=== PATIENT | female | born 1935 | race Caucasian/White ===

== ENCOUNTER 2017-01-24 10:15 | Inpatient (IN) ==
[2017-01-24] MEDS ORDERED: LACTATED RINGERS 1,000 ML IV ONE (10:28)
[2017-01-24] MEDS ORDERED: DIPH/TET/ACEL PERT BOOSTER VACCINE 0.5 ML VIAL IM ONE ×2 (10:29→10:46)
[2017-01-24] MEDS ORDERED: ONDANSETRON 4 MG/2 ML VIAL IV STA (10:29)
[2017-01-24] MEDS ORDERED: HYDROmorphone 2 MG/1 ML VIAL IV STA (10:29)
--- NOTE | 2017-01-24 10:38 | Emergency Department Note ---
Rylee Pro Kasabria, am scribing for, and in the presence of, Efrain Saleh MD 10 :33. Therese Pro James D, MD, personally performed the services described in this documentation, ascribed by Lily Mckee in my presence, and it is both accurate and complete . Arrival - Arrival Chief Complaint: Fall Stated Complaint: fall; ankle fracture ED Nursing Triage Note: tripped and fell last night around 1am, pt has no complaints, obvious deformity r ankle, morphine 5mg iv per ems Mode of Arrival: Stretcher Limitations: No Limitations Source: Patient, Family (daughter), RN Notes Reviewed Time Seen by Provider: 01/24/17 10:27 - History of Present Illness HPI Narrative: This is a 81 y/o white female presenting to the ED with c/o falling this morning at approximately 0100. She states she tripped and fell and laid on the floor until her daughter came to check on her. EMS was called and pt was given 5mg of morphine IV. Pt has an obvious deformity to her right medial ankle with a dorsalis pedis pulse detected with ultrasound. Her PMHx is consistent with diabetes, HTN, high cholesterol, and dementia. Onset (ago): hour(s) (10) Consistency: constant Severity: moderate Allergies/Adverse Reactions: Allergies Allergy/AdvReac Type Severity Reaction Status Date / Time Sulfa (Sulfonamide AdvReac RASH Unverified 01/24/17 10:17 Antibiotics) Home Medications: Home Medications Medication Instructions Recorded Confirmed Type Amitriptyline [Elavil] 50 mg PO BEDTIME 01/24/17 01/24/17 History Atenolol [Atenolol] 25 mg PO BID 01/24/17 01/24/17 History Cilostazol [Cilostazol] 50 mg PO BID 01/24/17 01/24/17 History Gabapentin [Gabapentin] 100 mg PO BID 01/24/17 01/24/17 History Insulin NPH Hum/Reg Insulin Hm units SUBCUT 01/24/17 History [NovoLIN 70/30] Losartan Potassium 100 mg PO DAILY 01/24/17 01/24/17 History Memantine [Namenda] 5 mg PO BID 01/24/17 01/24/17 History Pantoprazole Tab [Protonix Tab] 40 mg PO DAILY 01/24/17 01/24/17 History Triamterene/Hydrochlorothiazid 1 each PO DAILY 01/24/17 01/24/17 History [Triamterene-Hctz 37.5-25 mg Cp] metFORMIN [Glucophage] 500 mg PO DAILY W/BREAKFAST 01/24/17 01/24/17 History Review of System - Review of System 12 point system: reviewed and no additional remarkable complaints except as stated - Review of System Constitutional: Absent: chills, fever, weakness Eyes: Absent: vision change Head/Ears/Nose/Throat: Absent: nasal drainage Respiratory: Absent: wheezing Cardiovascular: Absent: chest pain, dyspnea on exertion Gastrointestinal: Absent: abdominal pain, nausea, vomiting, diarrhea Genitourinary female: Absent: dysuria Musculoskeletal: Present: leg pain (right ankle deformity and pain ). Absent: arm pain, back pain, neck pain Skin: Absent: rash Neurological: Absent: headache, weakness, confusion, vertigo Psychiatric: Absent: anxiety Endocrine: Absent: fatigue Hematological/Lymphatic: Absent: easy bleeding Allergic/Immunologic: Absent: facial swelling Medical,Surgical,& Family Hx - Medical History Cardio: History of: Hypertension Endocrine: History of: Diabetes Mellitus (NIDDM) - Social History Smoking Status: Unknown if ever smoked Exam Vital Signs: Vital Signs Temperature 94.3 F L 01/24/17 11:23 Pulse Rate 78 01/24/17 11:23 Respiratory Rate 16 01/24/17 11:23 Blood Pressure 183/84 01/24/17 11:23 O2 Sat by Pulse Oximetry 93 L 01/24/17 10:17 - General General appearance: alert, in no apparent distress - Head Head exam: Present: atraumatic, normocephalic, normal inspection - Eye Eye exam: Present: normal appearance, PERRL, EOMI - ENT ENT exam: Present: normal exam, normal oropharynx, mucous membranes moist, TM's normal bilaterally, normal external ear exam - Neck Neck exam: Present: normal inspection, full ROM, trachea midline. Absent: tenderness - Chest Chest inspection: Present: normal inspection, symmetric chest wall rise. Absent : tenderness - Respiratory Respiratory exam: Present: normal lung sounds bilaterally - Cardiovascular Cardiovascular exam: Present: regular rate, normal rhythm, normal heart sounds - Abdominal Exam Abdominal exam: Present: soft, normal bowel sounds. Absent: distention, tenderness - Expanded Lower Right Lower Ankle exam: Present: tenderness, swelling, abrasion, ecchymosis (Skin breakdown overlying the medial malleolus), deformity (pulses detected at the dorsalis pedis on R). Absent: normal inspection, full ROM Neurovascular/Tendon exam: Present: normal capillary refill, pulse deficit (At posterior tibial), extremity cold to touch, normal fine/light touch. Absent: sensory deficit Gait: not tested/not observed, unable to bear weight - Back Exam Back exam: Present: normal inspection, full ROM. Absent: tenderness - Neurological Exam Neurological exam: Present: alert, oriented X3, CN II-XII intact, normal gait, reflexes normal - Psychiatric Psychiatric exam: Present: normal affect, normal mood - Skin Skin exam: Present: warm, dry, intact, normal color. Absent: rash, diaphoresis Course Course Narrative: Patient was given warmed IV fluids while in the emergency department. She was given Dilaudid IV and Zofran and had her right ankle reduced. Postreduction views reveal anatomic reduction. - Consultations Consultation #1: Discussed with hospitalist. Patient will be admitted to their service. Time: 11:06 Consultation #2: Discussed with orthopedics. Dr. Prieto patient for ORIF. Time: 11:06 Procedures - Orthopedic Fracture Reduction Fracture #1 Consent Obtained: verbal consent Time Out Performed: Yes Side: right Fracture Reduction Location: tibia, fibula Analgesia: other (analgesia, dilaudid) Technique: direct manipulation Post Reduction X-rays Demonstrate: anatomical reduction Post-reduction neuro exam: intact Post-reduction vascular exam: intact Splint Applied: Yes Patient Tolerated Procedure: well, no complications Results - Labs Lab Results: I have reviewed the patients labs - EKG EKG results: interpreted by ERMD - Impressions EKG: Normal sinus rhythm with a rate of 77, nonspecific ST-T wave changes, left axis deviation. - Diagnostic Findings Procedure: Chest x-ray: image reviewed by me (No infiltrates, no pleural effusions.), X-ray: image reviewed by me (Right ankle: Bimalleolar fracture dislocation) Disposition Clinical Impression: Dementia, Essential hypertension, Diabetes mellitus, Bimalleolar fracture of right ankle, Hypothermia Case discussed with: patient, patient's family Disposition: Still a Patient Condition: Stable
[2017-01-24] MEDS ORDERED: ONDANSETRON 4 MG/2 ML VIAL ONE (10:46)
[2017-01-24] MEDS ORDERED: HYDROmorphone 2 MG/1 ML VIAL ONE (10:46)
--- NOTE | 2017-01-24 11:13 | XRay Report ---
XR chest 1V portable Indication: Respiratory preoperative evaluation Comparison: 14 August 2014 Findings: The heart and mediastinum are normal in size and configuration. The pulmonary vascularity is normal in caliber. No lung infiltrates, effusions, pneumothorax or other abnormality is demonstrated. Impression: No acute cardiopulmonary disease. PROCEDURE INTERPRETED AT [facility] DEPARTMENT OF RADIOLOGY Final Report Signed by: Dr. Jules Salazar
--- NOTE | 2017-01-24 11:13 | XRay Report ---
XR ankle 2V RT Clinical Information: POST REDUCTION, cast placement Comparison: 01/24/2017 at 10:24 AM Findings: Since the prior study, there has been external cast placement about the comminuted fracture dislocation at the distal tibia/fibula and tibiotalar joint. Overlying soft tissue swelling is noted. Bones aren't significantly improved anatomic position/alignment. Impression: As above PROCEDURE INTERPRETED AT [facility] DEPARTMENT OF RADIOLOGY Final Report Signed by: Mason Villanueva
[2017-01-24] MEDS ORDERED: ONDANSETRON 4 MG/2 ML VIAL IV PRN (11:14)
--- NOTE | 2017-01-24 11:14 | XRay Report ---
XR ankle 3V RT Clinical Information: deformity, Fracture, pain Comparison: None available Findings: Acute mildly comminuted fractures of the distal tibia/fibular are noted. There is also complete dislocation at the tibiotalar joint. Overlying soft tissue swelling is noted. Impression: As above. PROCEDURE INTERPRETED AT [facility] DEPARTMENT OF RADIOLOGY Final Report Signed by: Mason Villanueva
[2017-01-24 11:36] LABS: Basophils % 0.2 % (0.0-0.8); Eosinophils % 0.2 % (0.00-10.9); Hematocrit 37.6 VOL% (35.7-47.0); Hemoglobin 12.8 GM/DL (12.0-16.0); Immature Granulocytes % 0.7 %; Immature Granulocytes Absolute 0.06 #; Lymphocytes # 0.7 10*3/uL (1.4-4.0); Lymphocytes % 7.5 % (21.3-54.2); Mean Corpuscular Hemoglobin 32 PG (27-34); Mean Corpuscular Volume 92.6 FL (87-102); Mean Platelet Volume 10.5 FL (9.6-12.0); Monocytes # 0.6 10*3/uL (0.11-0.8); Monocytes % 6.7 % (1.7-12.7); Neutrophils # 7.7 10*3/uL (1.4-7.4); Neutrophils % 84.7 % (38.7-73.9); Platelet Count 142 T/CUMM (130-400); Red Blood Count 4.06 MC/CUMM (3.8-5.5); White Blood Count 9.1 T/CUMM (4-12)
[2017-01-24 11:47] LABS: PT Patient Result 10.9 SECS; Partial Thromboplastin Time 28.4 SECS (0-40)
[2017-01-24 12:08] LABS: Albumin 3.6 G/DL (3.4-5.0); Bilirubin,Total 1.2 MG/DL (0.2-1.0); Calcium 8.5 MG/DL (8.5-10.1); Potassium 5.4 MMOL/L (3.5-5.1); Total Protein 6.3 G/DL (6.4-8.3)
--- NOTE | 2017-01-24 12:17 | Hospitalist History & Physical ---
Assessment and Plan (1) Bimalleolar fracture of right ankle Status: Acute Assessment and plan: We will admit for medical management. We will start VTE prophylaxis, manage pain , and consult ortho for possible surgical intervention. Current Visit: Yes (2) Diabetes mellitus Status: Acute Assessment and plan: We will obtain HGA1C and start accuchecks with ss coverage. Current Visit: Yes (3) Essential hypertension Status: Acute Assessment and plan: We will medically manage during the clinical encounter. Current Visit: Yes History of Present Illness Chief complaint: fall and R ankle pain and injury History of present illness: This is a very pleasant 81 year old female that presented to the ED at [facility] with a chief compliant of right ankle pain. She has a medical history of hypertension, dementia, hyperlipidemia, and diabetes mellitus. The patient reports that she got up around 0100 this morning to use the restroom when she tripped and fell on the floor. The patient was not able to get up. She remained there on the floor until her daughter, who lives next door came over about 9AM this morning and found her. Her daughter called EMS and she was transferred to the ED for further evaluation. The patient has a noted deformity to the right ankle which was reduced by Dr. Saleh. Her pulses were strong upon palpation. The right lower leg was immobilized. Home Medications Medication Instructions Recorded Confirmed Type Amitriptyline [Elavil] 50 mg PO BEDTIME 01/24/17 01/24/17 History Atenolol [Atenolol] 25 mg PO BID 01/24/17 01/24/17 History Cilostazol [Cilostazol] 50 mg PO BID 01/24/17 01/24/17 History Gabapentin [Gabapentin] 100 mg PO BID 01/24/17 01/24/17 History Insulin NPH Hum/Reg Insulin Hm 40 units SUBCUT QPM 01/24/17 01/24/17 History [NovoLIN 70/30] Insulin NPH Hum/Reg Insulin Hm 64 units SUBCUT QAM 01/24/17 01/24/17 History [NovoLIN 70/30] Losartan Potassium 100 mg PO QAM 01/24/17 01/24/17 History Lovastatin [Lovastatin] 40 mg PO DAILY W/SUPPER 01/24/17 01/24/17 History Memantine [Namenda] 5 mg PO BID 01/24/17 01/24/17 History Pantoprazole Tab [Protonix Tab] 40 mg PO QAM 01/24/17 01/24/17 History Triamterene/Hydrochlorothiazid 1 each PO QAM 01/24/17 01/24/17 History [Triamterene-Hctz 37.5-25 mg Cp] metFORMIN [Glucophage] 500 mg PO DAILY W/BREAKFAST 01/24/17 01/24/17 History Allergies Allergy/AdvReac Type Severity Reaction Status Date / Time Sulfa (Sulfonamide AdvReac RASH Unverified 01/24/17 10:17 Antibiotics) Medical,Surgical,& Family Hx - Medical History Cardio: History of: Hypertension Endocrine: History of: Diabetes Mellitus (NIDDM) - Social History Smoking Status: Unknown if ever smoked Exam - Constitutional Vitals: Period Temp Pulse Resp BP Sys/Brooke Pulse Ox Last 24 Hr 94.3 F 78 16 183/84 General appearance: normal weight, no acute distress - Head Head exam: Present: normal inspection, normocephalic, atraumatic - Eye Eye exam: Present: EOMI. Absent: conjunctival injection Pupils: Present: SANJUANA. Absent: normal accommodation - ENT ENT exam: Present: normal exam, normal external ear exam, normal oropharynx - Neck Neck exam: Present: normal inspection. Absent: lymphadenopathy, meningismus, tenderness, thyromegaly - Respiratory Respiratory exam: Present: clear to auscultation bilaterally. Absent: rales, rhonchi, stridor, wheezes - Cardiovascular Cardiovascular exam: Present: regular rate and rhythm. Absent: carotid bruit, diastolic murmur, gallop, JVD, rubs, systolic murmur, tachycardia - GI/Abdominal GI/Abdominal exam: Present: normal bowel sounds, soft - Extremities Exam Extremities exam: Present: edema (right foot), other (immobilizer to right lower leg; pulses palpable) - Back Exam Back exam: Present: normal inspection - Neurological Exam Neurological exam: Present: alert, oriented X3 - Psychiatric Psychiatric exam: Present: normal affect, normal mood - Skin Skin exam: Present: normal color, warm, dry Results - Labs CBC & BMP: 01/24/17 11:29 Lab Results: I have reviewed the past 24 hour labs
[2017-01-24 12:43] LABS: Apearance,Urine CLOUDY (Clear); Bacteria,Urine Many /HPF (Few); Bilirubin,Urine Negative (Negative); Blood, Urine Small mg/dL (Negative); Glucose,Urine (UA) Negative (Negative); Ketones,Urine Negative (Negative); Nitrite,Urine Negative (Negative); Protein,Urine Negative; Urine Color Yellow (Yellow); Urine Urobilinogen < 2.0 EU/DL (0.2-1.0); WBC,Urine 20 /HPF (0-6)
[2017-01-24] MEDS ORDERED: ROPIVACAINE 0.5% 30 ML VIAL ONE (13:06)
[2017-01-24] MEDS ORDERED: ceFAZolin 2,000 MG in PREMIX 1 EACH IV ONE (14:27)
--- NOTE | 2017-01-24 14:33 | Orthopedic Consult Note ---
History of Present Illness Chief complaint: Right trimalleolar ankle fracture History of present illness: Ms. Parker is a 81 year old female who fell this morning approximately 1 AM. She was going to the bathroom. She sustained a right closed trimalleolar ankle fracture. She was found this morning by her daughter. Patient has underlying peripheral neuropathy and did not wish to bother anybody. She denies any other injury. She has not had any prior problems to her right ankle. Patient underwent a closed reduction by Dr. Saleh in the emergency room and was splinted. Right lower extremity was examined. Splint was taken down. There is no gross deformity. She does have a superficial abrasive changes to the medial aspect of her ankle. She also has a 3 x 3 cm area of contused skin. Pulses are only faintly positive. Foot is warm and pink. Sensation is decreased in a stocking distribution to roughly her mid leg. X-rays ankle pre-and post reduction were reviewed. They demonstrate a trimalleolar fracture dislocation which is been reduced and splinted. Impression: Right trimalleolar ankle fracture. Diabetic peripheral neuropathy and vasculopathy. Plan: I have advised open reduction fixation. Risks and benefits were discussed. I discussed that given her significant neuropathy and continues skin that she is at risk for wound healing problems and possibly amputation. Other risks were discussed and all questions were answered. Home Medications Medication Instructions Recorded Confirmed Type Amitriptyline [Elavil] 50 mg PO BEDTIME 01/24/17 01/24/17 History Atenolol [Atenolol] 25 mg PO BID 01/24/17 01/24/17 History Cilostazol [Cilostazol] 50 mg PO BID 01/24/17 01/24/17 History Gabapentin [Gabapentin] 100 mg PO BID 01/24/17 01/24/17 History Insulin NPH Hum/Reg Insulin Hm 40 units SUBCUT QPM 01/24/17 01/24/17 History [NovoLIN 70/30] Insulin NPH Hum/Reg Insulin Hm 64 units SUBCUT QAM 01/24/17 01/24/17 History [NovoLIN 70/30] Losartan Potassium 100 mg PO QAM 01/24/17 01/24/17 History Lovastatin [Lovastatin] 40 mg PO DAILY W/SUPPER 01/24/17 01/24/17 History Memantine [Namenda] 5 mg PO BID 01/24/17 01/24/17 History Pantoprazole Tab [Protonix Tab] 40 mg PO QAM 01/24/17 01/24/17 History Triamterene/Hydrochlorothiazid 1 each PO QAM 01/24/17 01/24/17 History [Triamterene-Hctz 37.5-25 mg Cp] metFORMIN [Glucophage] 500 mg PO DAILY W/BREAKFAST 01/24/17 01/24/17 History Allergies Allergy/AdvReac Type Severity Reaction Status Date / Time Sulfa (Sulfonamide AdvReac RASH Unverified 01/24/17 10:17 Antibiotics) 12 point system: reviewed and no additional remarkable complaints except as stated Medical,Surgical,& Family Hx - Medical History Cardio: History of: Hypertension Neurology: History of: Dementia HEENT: History of: Eye Problem (Glasses. Diabetic retinopathy), Dental Problems (Full dentures), HEENT Problems ([place]) Endocrine: History of: Diabetes Mellitus (NIDDM), Dyslipidemia Genitourinary: History of: Recurring Urinary Tract Infections - Surgical History HEENT Surgeries: Surgical HX of: Eye Surgery (Cataracts) Abdominal Surgeries: Surgical HX of: Cholecystectomy Reproductive Surgeries: Surgical HX of;: Hysterectomy (Partial) - Social History Smoking Status: Never smoker Frequency of Alcohol Use: None Type of Drug Use: None Exam - Constitutional Vitals: Period Temp Pulse Resp BP Sys/Brooke Pulse Ox Last 24 Hr 94.3 F-97.0 F 78-82 16-20 113-183/78-84 91 Results - Labs CBC & BMP: 01/24/17 11:29 01/24/17 11:29 Assessment and Plan (1) Trimalleolar fracture of right ankle Status: Acute Current Visit: Yes Qualifiers: Encounter type: initial encounter Fracture type: closed Qualified Code(s) : S82.851A - Displaced trimalleolar fracture of right lower leg, initial encounter for closed fracture
[2017-01-24] MEDS ORDERED: PROPOFOL 200 MG/20 ML VIAL IV ONE (15:00)
[2017-01-24] MEDS ORDERED: ceFAZolin 1,000 MG VIAL ONE (15:21)
[2017-01-24] MEDS ORDERED: BACITRACIN OINT 0.9 GM PACK TOP ONE ×2 (15:31→16:11)
--- NOTE | 2017-01-24 16:23 | Operative Note ---
Date of procedure: 01/24/17 Procedure: DIAGNOSIS: Right displaced trimalleolar fracture PROCEDURE: Right trimalleolar open reduction and fixation without fixation posterior lip (CPT#99242) SURGEON: Ida ANESTHESIA: LMA general with popliteal block PROCEDURE and FINDINGS: After adequate anesthesia was induced, the limb was prepped and draped in the usual sterile fashion. Limb was exsanguinated with Esmarch. Tourniquet was inflated to 300 mmHg. A lateral approach to the distal fibula was made. Skin, subcutaneous tissue, and periosteum was incised longitudinally. Fracture was exposed and reduced. A 7 hole contoured semitubular plate was applied and loaded in compression with 3 screws proximally and 3 screws distally. The medial malleolus was exposed through a medial incision. Neurovascular structures were protected. Fracture was identified and reduced. Medial malleolus was secured with pins and then followed with two 4.0 mm cannulated partially threaded screws. Wounds were irrigated. Periosteum was approximated with 0 Vicryl figure-of- eight sutures. Subcutaneous tissues were closed with 3-0 Vicryl interrupted, buried sutures. Skin was approximated with manish. Sterile dressing and short leg splint was applied. Tourniquet was released for an approximate time of 38 minutes prior to medial wound closure.. Image intensification was used throughout the procedure. Surgeon / Physician: Billy Prieto Jr. Results - Labs CBC & BMP: 01/24/17 11:29 01/24/17 11:29 Discharge Plan - Discharge Medications No Action Pantoprazole Tab [Protonix Tab] 40 mg PO QAM Memantine [Namenda] 5 mg PO BID Gabapentin [Gabapentin] 100 mg PO BID Cilostazol [Cilostazol] 50 mg PO BID Atenolol [Atenolol] 25 mg PO BID Amitriptyline [Elavil] 50 mg PO BEDTIME Insulin NPH Hum/Reg Insulin Hm [NovoLIN 70/30] 40 units SUBCUT QPM Triamterene/Hydrochlorothiazid [Triamterene-Hctz 37.5-25 mg Cp] 1 each PO QAM metFORMIN [Glucophage] 500 mg PO DAILY W/BREAKFAST Losartan Potassium 100 mg PO QAM Insulin NPH Hum/Reg Insulin Hm [NovoLIN 70/30] 64 units SUBCUT QAM Lovastatin [Lovastatin] 40 mg PO DAILY W/SUPPER - Follow Up or Referral - Forms/Instructions
[2017-01-24] MEDS ORDERED: oxyCODONE IR 5 MG TABLET PO PRN ×2 (16:25)
--- NOTE | 2017-01-24 16:33 | XRay Report ---
Referring Physician: Billy Prieto Jr Exam: XR ankle 3V RT Date: January 24, 2017 at 3:07 PM Reason: ORIF right ankle Comparison: Right ankle x-rays January 24, 2017 at 10:42 AM Findings: 3 images of the right ankle were provided after performance of the procedure. Fluoroscopy time was 8.6 seconds. Images demonstrate internal fixation of the distal right fibula and medial malleolus. Position and alignment appear satisfactory. Impression: Images are presumed satisfactory for the purposes of the procedure. PROCEDURE INTERPRETED AT [facility] DEPARTMENT OF RADIOLOGY Final Report Signed by: Dr. Eric Henderson
--- NOTE | 2017-01-24 16:36 | Anesthesia Post-Op ---
Anesthesia Post OP - Post Ansesthetic Evaluation Patient seen in post op: Yes Resp: within normal limits CV: within normal limits Mental: within normal limits Temp: within normal limits [id number]: within normal limits Nausea and Vomiting: within normal limits Pain: within normal limits
[2017-01-24] MEDS ORDERED: ACETAMINOPHEN 1,000 MG/100 ML VIAL IV ONE (16:39)
[2017-01-24] MEDS: LOVASTATIN 20 MG TABLET PO SCH (17:24)
[2017-01-24] MEDS: SODIUM CHLORIDE 0.9% 1,000 ML IV SCH ×2 (17:30→21:57)
[2017-01-24] MEDS: INSULIN NPH/REGULAR 70/30 100 UNIT/ML SUBCUT SCH (18:35)
[2017-01-24] MEDS: ACETAMINOPHEN 500 MG TABLET PO SCH (20:46)
[2017-01-24] MEDS: ATENOLOL 25 MG TABLET PO SCH (20:47)
[2017-01-24] MEDS: CILOSTAZOL 50 MG TABLET PO SCH (20:47)
[2017-01-24] MEDS: AMITRIPTYLINE 50 MG TABLET PO SCH (20:47)
[2017-01-24] MEDS: MEMANTINE 5 MG TABLET PO SCH (20:47)
[2017-01-24] MEDS: GABAPENTIN 100 MG CAPSULE PO SCH (20:47)
[2017-01-24] MEDS: ceFAZolin 2,000 MG in PREMIX 1 EACH IV SCH (21:51)
[2017-01-25] MEDS: ACETAMINOPHEN 500 MG TABLET PO SCH ×4 (02:36→16:13)
[2017-01-25] MEDS: SODIUM CHLORIDE 0.9% 1,000 ML IV SCH ×3 (04:14→23:07)
[2017-01-25 06:15] LABS: Basophils % 0.2 % (0.0-0.8); Eosinophils # 0.1 10*3/uL (0.0-0.87); Eosinophils % 2.2 % (0.00-10.9); Hemoglobin 10.4 GM/DL (12.0-16.0); Immature Granulocytes % 0.3 %; Immature Granulocytes Absolute 0.02 #; Lymphocytes # 1.2 10*3/uL (1.4-4.0); Lymphocytes % 18.9 % (21.3-54.2); Mean Corpuscular HGB Conc 32.5 GM/DL (32-36); Mean Corpuscular Hemoglobin 31 PG (27-34); Mean Corpuscular Volume 96.7 FL (87-102); Mean Platelet Volume 10.6 FL (9.6-12.0); Monocytes # 0.6 10*3/uL (0.11-0.8); Monocytes % 8.7 % (1.7-12.7); Neutrophils # 4.4 10*3/uL (1.4-7.4); Neutrophils % 69.7 % (38.7-73.9); Platelet Count 135 T/CUMM (130-400); Red Blood Count 3.31 MC/CUMM (3.8-5.5); Red Cell Distribution Width 14.2 % (9.3-17.3); White Blood Count 6.3 T/CUMM (4-12)
[2017-01-25] MEDS: ceFAZolin 2,000 MG in PREMIX 1 EACH IV SCH (06:32)
[2017-01-25 07:03] LABS: Albumin 2.9 G/DL (3.4-5.0); Bilirubin,Total 0.8 MG/DL (0.2-1.0); Calcium 7.8 MG/DL (8.5-10.1); Osmolality,Calculated 284.5 MOS/KG (273-304); Potassium 4.7 MMOL/L (3.5-5.1); Risk Ratio 2.52; Thyroid Stimulating Hormone 4.41 uIU/ml (0.358-3.74); Total Protein 5.1 G/DL (6.4-8.3)
[2017-01-25] MEDS ORDERED: DEXTROSE 50% 25 GM/50 ML VIAL IV PRN (07:12)
[2017-01-25] MEDS ORDERED: GLUCAGON 1 MG VIAL IM PRN (07:12)
[2017-01-25] MEDS ORDERED: MORPHINE 2 MG/1 ML SYRINGE IV PRN (07:38)
--- NOTE | 2017-01-25 07:43 | Orthopedic Progress Note ---
Assessment and Plan (1) Trimalleolar fracture of right ankle Status: Acute Current Visit: Yes Qualifiers: Encounter type: initial encounter Fracture type: closed Qualified Code(s) : S82.851A - Displaced trimalleolar fracture of right lower leg, initial encounter for closed fracture Orthopedics - Subjective Interval history: She is just starting to complain of some pain to her right ankle. I suspect her popliteal block is starting to wear off. Right lower extremity is neurovascularly unchanged. She can flex and extend her toes. Sensation is still diminished. Capillary refills approximately 3 seconds. Toes are warm and pink. Her urine culture is positive for gram-negative rods. Plan: Start transfer training with physical therapy. Decrease IV fluids to 50 cc an hour. Start Arixtra Friday a.m. for DVT prophylaxis. The family is requesting swing bed placement. I suspect the patient will progress slowly with therapy. I am going to defer diabetic management and treatment of her UTI to the hospitalist service. Exam - Constitutional Vitals: Period Temp Pulse Resp BP Sys/Brooke Pulse Ox Last 24 Hr 94.3 F-99.8 F 64-117 12-20 93-183/41-95 91-99 Results - Labs CBC & BMP: 01/25/17 04:54 01/25/17 04:54 Quality Measures - VTE Contraindication to Pharmacological VTE Prophylaxis: High Risk of Bleeding
[2017-01-25] MEDS ORDERED: metFORMIN 500 MG TABLET PO SCH (08:00)
[2017-01-25] MEDS: PANTOPRAZOLE 40 MG TABLET PO SCH (08:24)
[2017-01-25] MEDS: CILOSTAZOL 50 MG TABLET PO SCH ×2 (08:25→21:25)
[2017-01-25] MEDS: MEMANTINE 5 MG TABLET PO SCH ×2 (08:26→21:25)
[2017-01-25] MEDS: INSULIN LISPRO 100 UNIT/ML SUBCUT SCH ×4 (08:30→21:25)
[2017-01-25] MEDS: INSULIN NPH/REGULAR 70/30 100 UNIT/ML SUBCUT SCH ×2 (08:36→21:46)
[2017-01-25] MEDS: GABAPENTIN 100 MG CAPSULE PO SCH ×2 (08:36→21:25)
--- NOTE | 2017-01-25 09:09 | EKG Report ---
Stationary ECG Study [facility] ER Test Date: 01/24/2017 11:17:08 AM Pat Name: VARSHA KITCHEN Department: Room: 323 Gender: F [employer] Girls: : 1935 Requested by: Efrain Cobos Order Number: [id number] Reading MD: XIOMY VILLANUEVA Intervals [place] Rate: 77 P: 10 [place]: 171 QRS: -10 QRSD: 90 T: 8 QT: 419 QTc: 450 Interpretive Statements NORMAL SINUS RHYTHM LEFT ATRIAL ABNORMALITY LOW VOLTAGE IN THE PRECORDIAL LEADS CANNOT RULE OUT OLD INFERIOR INFARCT WITH POSTERIOR EXTENSION Electronically Signed On 01-26-17 09:02:11 CDT by XIOMY VILLANUEVA [email or web address]
--- NOTE | 2017-01-25 10:50 | Hospitalist Progress Note ---
Assessment and Plan (1) Poor eyesight Status: Acute Assessment and plan: Assistance with ADLs as needed. Patient at this point needs OT PT following fracture of the right lower extremity. Fall precautions should be observed. Current Visit: Yes (2) Essential hypertension Status: Acute Assessment and plan: Blood pressure control is good at this point Current Visit: Yes (3) Diabetes mellitus Status: Acute Assessment and plan: We should target blood sugars below 150 mg percent. Continue insulin;Because of renal insufficiency I am concerned about continuing the metformin. This will be discontinued Current Visit: Yes (4) Trimalleolar fracture of right ankle Status: Acute Assessment and plan: This is been attended to by the orthopedic Current Visit: Yes Qualifiers: Encounter type: initial encounter Fracture type: closed Qualified Code(s) : S82.851A - Displaced trimalleolar fracture of right lower leg, initial encounter for closed fracture (5) UTI (urinary tract infection) Status: Acute Assessment and plan: Patient has greater than 100,000 colony-forming units of gram-negative ghanshyam in the urine. The background was pending at this point. Start levofloxacin 500 mg IV daily. Repeat UA after tomorrow. Current Visit: Yes Hospitalist: Subjective Interval history: Patient has been seen interviewed and examined chart has been reviewed. She is much more awake today. Still hard of hearing and with poor psych. Mid to the hospital in the morning as of yesterday after a fall at home. She suffered a right trimalleolar fracture; she has had also intervention. PT OT on the case Exam - Constitutional Vitals: Period Temp Pulse Resp BP Sys/Brooke Pulse Ox Last 24 Hr 94.3 F-99.8 F 64-117 12-20 93-183/41-95 91-99 General appearance: over weight - Head Head exam: Present: normocephalic, atraumatic - Eye Eye exam: Present: EOMI Pupils: Present: SANJUANA - ENT ENT exam: Present: normal oropharynx - Neck Neck exam: Present: normal inspection - Respiratory Respiratory exam: Present: clear to auscultation bilaterally - Cardiovascular Cardiovascular exam: Present: regular rate and rhythm - GI/Abdominal GI/Abdominal exam: Present: normal bowel sounds, soft - Extremities Exam Extremities exam: Present: other (Right foot is wrapped in compression Carlo bandages. The proximal tissues are normal capillary refill is normal) - Neurological Exam Neurological exam: Present: alert, oriented X3, CN II-XII intact - Psychiatric Psychiatric exam: Present: normal affect, normal mood - Skin Skin exam: Present: normal color, warm, dry Results - Labs CBC & BMP: 01/25/17 04:54 01/25/17 04:54 Lab Results: I have reviewed the past 24 hour labs Quality Measures - VTE Contraindication to Pharmacological VTE Prophylaxis: High Risk of Bleeding
[2017-01-25] MEDS: ATENOLOL 25 MG TABLET PO SCH ×2 (10:58→21:25)
[2017-01-25] MEDS: TRIAMTERENE/HCTZ 37.5-25 MG CAPSULE PO SCH (10:58)
[2017-01-25] MEDS: LOSARTAN 50 MG TABLET PO SCH (10:58)
[2017-01-25] MEDS: LEVOFLOXACIN INJ 500 MG in PREMIX 1 EACH IV SCH (11:59)
[2017-01-25] MEDS: ACETAMINOPHEN 325 MG TABLET PO PRN (16:13)
[2017-01-25] MEDS: LOVASTATIN 20 MG TABLET PO SCH (18:32)
[2017-01-25] MEDS: AMITRIPTYLINE 50 MG TABLET PO SCH (21:25)
[2017-01-26] MEDS: SODIUM CHLORIDE 0.9% 1,000 ML IV SCH (04:03)
--- NOTE | 2017-01-26 07:54 | Orthopedic Progress Note ---
Assessment and Plan (1) Trimalleolar fracture of right ankle Status: Acute Current Visit: Yes Qualifiers: Encounter type: initial encounter Fracture type: closed Qualified Code(s) : S82.851A - Displaced trimalleolar fracture of right lower leg, initial encounter for closed fracture Orthopedics - Subjective Interval history: Comfortable. Physical therapy just sat Mrs. Parker on the side of the bed yesterday. Right lower extremity shows that the splint is intact. She is neurovascularly unchanged. Plan: Continue with physical therapy. Stop IV fluids and Person. Discharge planning. The family would like to go to [facility]. Exam - Constitutional Vitals: Period Temp Pulse Resp BP Sys/Brooke Pulse Ox Last 24 Hr 97.7 F-98.9 F 84-97 16-20 104-147/55-73 90-97 Results - Labs CBC & BMP: 01/25/17 04:54 01/25/17 04:54 Quality Measures - VTE Contraindication to Pharmacological VTE Prophylaxis: High Risk of Bleeding
[2017-01-26] MEDS: INSULIN LISPRO 100 UNIT/ML SUBCUT SCH ×4 (08:10→22:27)
[2017-01-26] MEDS: INSULIN NPH/REGULAR 70/30 100 UNIT/ML SUBCUT SCH ×2 (10:31→22:28)
[2017-01-26] MEDS: ATENOLOL 25 MG TABLET PO SCH ×2 (10:40→22:26)
[2017-01-26] MEDS: MEMANTINE 5 MG TABLET PO SCH ×2 (10:40→22:26)
[2017-01-26] MEDS: PANTOPRAZOLE 40 MG TABLET PO SCH (10:41)
[2017-01-26] MEDS: LOSARTAN 50 MG TABLET PO SCH (10:41)
[2017-01-26] MEDS: TRIAMTERENE/HCTZ 37.5-25 MG CAPSULE PO SCH (10:42)
[2017-01-26] MEDS: GABAPENTIN 100 MG CAPSULE PO SCH ×2 (10:43→22:25)
[2017-01-26] MEDS: CILOSTAZOL 50 MG TABLET PO SCH ×2 (10:43→22:25)
[2017-01-26] MEDS: FONDAPARINUX 2.5 MG/0.5 ML SYRINGE SUBCUT SCH (10:44)
[2017-01-26] MEDS: LEVOFLOXACIN INJ 500 MG in PREMIX 1 EACH IV SCH (10:52)
[2017-01-26] MEDS: MAGNESIUM HYDROXIDE SUSP 30 ML UDCUP PO PRN (10:53)
--- NOTE | 2017-01-26 13:19 | Hospitalist Progress Note ---
Assessment and Plan (1) Poor eyesight Status: Acute Assessment and plan: Assistance with ADLs as needed. Patient at this point needs OT PT following fracture of the right lower extremity. Fall precautions should be observed. Current Visit: Yes (2) Essential hypertension Status: Acute Assessment and plan: Blood pressure control is good at this point Current Visit: Yes (3) Diabetes mellitus Status: Acute Assessment and plan: We should target blood sugars below 150 mg percent. Continue insulin;Because of renal insufficiency I am concerned about continuing the metformin. This will be discontinued Current Visit: Yes (4) Trimalleolar fracture of right ankle Status: Acute Assessment and plan: This is been attended to by the orthopedic Current Visit: Yes Qualifiers: Encounter type: initial encounter Fracture type: closed Qualified Code(s) : S82.851A - Displaced trimalleolar fracture of right lower leg, initial encounter for closed fracture (5) UTI (urinary tract infection) Status: Acute Assessment and plan: Patient has greater than 100,000 colony-forming units of gram-negative ghanshyam in the urine. T this turns out to be E. coli that is sensitive to everything including levofloxacin. Can repeat a UA today and possibly leave on oral medication as she planned to be discharged tomorrow. Current Visit: Yes Hospitalist: Subjective Interval history: Patient has been seen interviewed and examined. No acute complaints this morning. Admitted to the hospital following a fall and bimalleolar fracture that has since been fixed. She is going through physical therapy and occupational therapy. The plan for swing bed tomorrow. Exam - Constitutional Vitals: Period Temp Pulse Resp BP Sys/Brooke Pulse Ox Last 24 Hr 97.7 F-98.9 F 84-108 16-20 104-148/60-78 90-97 General appearance: over weight - Head Head exam: Present: normocephalic, atraumatic - Eye Eye exam: Present: EOMI Pupils: Present: SANJUANA - ENT ENT exam: Present: normal exam - Neck Neck exam: Present: normal inspection - Respiratory Respiratory exam: Present: clear to auscultation bilaterally - Cardiovascular Cardiovascular exam: Present: regular rate and rhythm - GI/Abdominal GI/Abdominal exam: Present: normal bowel sounds, soft - Extremities Exam Extremities exam: Present: full ROM - Neurological Exam Neurological exam: Present: alert, oriented X3, CN II-XII intact - Psychiatric Psychiatric exam: Present: normal affect, normal mood - Skin Skin exam: Present: normal color, warm, dry Results - Labs CBC & BMP: 01/25/17 04:54 01/25/17 04:54 Lab Results: I have reviewed the past 24 hour labs Quality Measures - VTE Contraindication to Pharmacological VTE Prophylaxis: High Risk of Bleeding
[2017-01-26] MEDS: ACETAMINOPHEN 325 MG TABLET PO PRN (15:00)
[2017-01-26] MEDS: LOVASTATIN 20 MG TABLET PO SCH (17:33)
[2017-01-26] MEDS: AMITRIPTYLINE 50 MG TABLET PO SCH (22:25)
--- NOTE | 2017-01-27 09:00 | Orthopedic Progress Note ---
Assessment and Plan (1) Trimalleolar fracture of right ankle Status: Acute Current Visit: Yes Qualifiers: Encounter type: initial encounter Fracture type: closed Qualified Code(s) : S82.851A - Displaced trimalleolar fracture of right lower leg, initial encounter for closed fracture Orthopedics - Subjective Interval history: Mrs Parker was able to stand with physical therapy yesterday. Right lower extremity is neurovascularly unchanged. The short leg splint is intact. Plan: Given her underlying comorbidities, I anticipate a very slow progression with physical therapy. She can be discharged to swing bed when bed is available. Follow-up appointment in 10-12 days. Strict nonweightbearing right lower extremity. Keep splint clean, dry and intact. Float heels at all times. Tylenol as needed for pain. Exam - Constitutional Vitals: Period Temp Pulse Resp BP Sys/Brooke Pulse Ox Last 24 Hr 98.0 F-98.6 F 84-100 17-20 113-157/58-73 82-96 Results - Labs CBC & BMP: 01/25/17 04:54 01/25/17 04:54 Quality Measures - VTE Contraindication to Pharmacological VTE Prophylaxis: High Risk of Bleeding
[2017-01-27] MEDS: CILOSTAZOL 50 MG TABLET PO SCH ×2 (09:25→20:55)
[2017-01-27] MEDS: GABAPENTIN 100 MG CAPSULE PO SCH ×2 (09:25→20:55)
[2017-01-27] MEDS: TRIAMTERENE/HCTZ 37.5-25 MG CAPSULE PO SCH (09:25)
[2017-01-27] MEDS: LOSARTAN 50 MG TABLET PO SCH (09:27)
[2017-01-27] MEDS: PANTOPRAZOLE 40 MG TABLET PO SCH (09:28)
[2017-01-27] MEDS: ATENOLOL 25 MG TABLET PO SCH ×2 (09:28→20:55)
[2017-01-27] MEDS: MEMANTINE 5 MG TABLET PO SCH ×2 (09:28→20:55)
[2017-01-27] MEDS: FONDAPARINUX 2.5 MG/0.5 ML SYRINGE SUBCUT SCH (09:29)
[2017-01-27] MEDS: INSULIN NPH/REGULAR 70/30 100 UNIT/ML SUBCUT SCH ×3 (09:29→21:05)
[2017-01-27] MEDS: INSULIN LISPRO 100 UNIT/ML SUBCUT SCH ×4 (09:30→21:05)
[2017-01-27] MEDS: LEVOFLOXACIN INJ 500 MG in PREMIX 1 EACH IV SCH (10:48)
--- NOTE | 2017-01-27 13:21 | Hospitalist Progress Note ---
Assessment and Plan (1) Poor eyesight Status: Acute Assessment and plan: Assistance with ADLs as needed. Patient at this point needs OT PT following fracture of the right lower extremity. Fall precautions should be observed. Current Visit: Yes (2) Essential hypertension Status: Acute Assessment and plan: Blood pressure control is good at this point Current Visit: Yes (3) Diabetes mellitus Status: Acute Assessment and plan: We should target blood sugars below 150 mg percent. Continue insulin;Because of renal insufficiency I am concerned about continuing the metformin. This will be discontinued Current Visit: Yes (4) Trimalleolar fracture of right ankle Status: Acute Assessment and plan: This is been attended to by the orthopedic Current Visit: Yes Qualifiers: Encounter type: initial encounter Fracture type: closed Qualified Code(s) : S82.851A - Displaced trimalleolar fracture of right lower leg, initial encounter for closed fracture (5) UTI (urinary tract infection) Status: Acute Assessment and plan: Patient has greater than 100,000 colony-forming units of gram-negative ghanshyam in the urine. T this turns out to be E. coli that is sensitive to everything including levofloxacin. Can repeat a UA today and possibly leave on oral medication as she planned to be discharged to swing bed as soon as bed is available. Current Visit: Yes Hospitalist: Subjective Interval history: Patient has been seen interviewed and examined and chart has been reviewed. Offering mild complaints today. Plan is been to send her to swing bed. Case management is on the case. This lady was admitted to the hospital on the 6 after a fall at home and suffering a trimalleolar fracture of the right ankle. Orthopedic management is been affected. She has been through physical therapy and occupational therapy at this point. She also has poor side and poor hearing. She has a history of hypertension which is well-controlled and history of diabetes mellitus that is being followed and controlled. My expectation is that she will find a bed at the swing bed in the coming 24-48 hours. As of this hour that is not available yet Exam - Constitutional Vitals: Period Temp Pulse Resp BP Sys/Brooke Pulse Ox Last 24 Hr 98.0 F-98.7 F 82-94 18-20 113-157/58-73 82-96 General appearance: over weight - Head Head exam: Present: normal inspection - Eye Eye exam: Present: EOMI Pupils: Present: SANJUANA - ENT ENT exam: Present: normal exam - Neck Neck exam: Present: normal inspection - Respiratory Respiratory exam: Present: clear to auscultation bilaterally - Cardiovascular Cardiovascular exam: Present: regular rate and rhythm - GI/Abdominal GI/Abdominal exam: Present: normal bowel sounds, soft - Extremities Exam Extremities exam: Present: other (No edema no cyanosis. Right foot and ankle are dressing compressive dressing. No advancing cellulitis. Patient can move at the knees and hips.) - Back Exam Back exam: Present: normal inspection - Neurological Exam Neurological exam: Present: alert, oriented X3, CN II-XII intact - Psychiatric Psychiatric exam: Present: normal affect, normal mood - Skin Skin exam: Present: normal color, warm, dry Results - Labs CBC & BMP: 01/25/17 04:54 01/25/17 04:54 Lab Results: I have reviewed the past 24 hour labs Quality Measures - VTE Contraindication to Pharmacological VTE Prophylaxis: High Risk of Bleeding Specialty Discharge - Follow Up or Referrals Follow up with: Billy Prieto Jr., MD [Physician] - 02/06/17 9:30 am
[2017-01-27 15:03] LABS: Apearance,Urine Slightly Hazy (Clear); Bilirubin,Urine Negative (Negative); Blood, Urine Small mg/dL (Negative); Glucose,Urine (UA) 50 mg/dL (Negative); Ketones,Urine Negative (Negative); Mucus,Urine Occasional /LPF (Occasional); Nitrite,Urine Negative (Negative); Protein,Urine Negative; RBC,Urine 8 /HPF (0-4); Squamous Epithelial Cell,Urine Occasional /HPF (0-10); Urine Color Yellow (Yellow); Urine Specific Gravity 1.006 (1.001-1.035); Urine Urobilinogen < 2.0 EU/DL (0.2-1.0); WBC,Urine 1 /HPF (0-6)
[2017-01-27] MEDS: LOVASTATIN 20 MG TABLET PO SCH (18:01)
[2017-01-27] MEDS: AMITRIPTYLINE 50 MG TABLET PO SCH (20:55)
[2017-01-27] MEDS ORDERED: AMOXICILLIN/CLAV 875 MG TABLET PO SCH (21:00)
[2017-01-28 07:00] LABS: Basophils % 0.2 % (0.0-0.8); Eosinophils # 0.2 10*3/uL (0.0-0.87); Eosinophils % 3.5 % (0.00-10.9); Hematocrit 37.4 VOL% (35.7-47.0); Immature Granulocytes % 0.6 %; Immature Granulocytes Absolute 0.04 #; Lymphocytes # 1.1 10*3/uL (1.4-4.0); Lymphocytes % 15.8 % (21.3-54.2); Mean Corpuscular HGB Conc 33.2 GM/DL (32-36); Mean Corpuscular Hemoglobin 32 PG (27-34); Mean Corpuscular Volume 95.2 FL (87-102); Mean Platelet Volume 10.3 FL (9.6-12.0); Monocytes # 0.6 10*3/uL (0.11-0.8); Monocytes % 8.6 % (1.7-12.7); Neutrophils # 4.7 10*3/uL (1.4-7.4); Neutrophils % 71.3 % (38.7-73.9); Platelet Count 152 T/CUMM (130-400); Red Blood Count 3.93 MC/CUMM (3.8-5.5); Red Cell Distribution Width 13.8 % (9.3-17.3); White Blood Count 6.6 T/CUMM (4-12)
[2017-01-28 07:10] LABS: Hemoglobin 12.4 GM/DL (12.0-16.0)
--- NOTE | 2017-01-28 07:15 | Orthopedic Progress Note ---
Assessment and Plan (1) Trimalleolar fracture of right ankle Status: Acute Current Visit: Yes Qualifiers: Encounter type: initial encounter Fracture type: closed Qualified Code(s) : S82.851A - Displaced trimalleolar fracture of right lower leg, initial encounter for closed fracture Orthopedics - Subjective Interval history: Comfortable. No new complaints. Waiting for approval for [facility]. Splint clean, dry and intact. Neurovascularly unchanged. Plan: Continue with current plan. Encouraged elevation and heel floating. Exam - Constitutional Vitals: Period Temp Pulse Resp BP Sys/Brooke Pulse Ox Last 24 Hr 98.0 F-98.8 F 76-90 17-18 86-136/53-72 82-98 Results - Labs CBC & BMP: 01/28/17 06:00 01/25/17 04:54 Quality Measures - VTE Contraindication to Pharmacological VTE Prophylaxis: High Risk of Bleeding Specialty Discharge - Follow Up or Referrals Follow up with: Billy Prieto Jr., MD [Physician] - 02/06/17 9:30 am
[2017-01-28 07:26] LABS: Calcium 8.7 MG/DL (8.5-10.1); Osmolality,Calculated 272.1 MOS/KG (273-304); Potassium 4.4 MMOL/L (3.5-5.1)
[2017-01-28] MEDS: INSULIN LISPRO 100 UNIT/ML SUBCUT SCH ×4 (08:14→20:56)
[2017-01-28] MEDS: MEMANTINE 5 MG TABLET PO SCH ×2 (08:15→20:56)
[2017-01-28] MEDS: FONDAPARINUX 2.5 MG/0.5 ML SYRINGE SUBCUT SCH (08:15)
[2017-01-28] MEDS: GABAPENTIN 100 MG CAPSULE PO SCH ×2 (08:15→20:56)
[2017-01-28] MEDS: INSULIN NPH/REGULAR 70/30 100 UNIT/ML SUBCUT SCH (08:15)
[2017-01-28] MEDS: TRIAMTERENE/HCTZ 37.5-25 MG CAPSULE PO SCH (08:15)
[2017-01-28] MEDS: LOSARTAN 50 MG TABLET PO SCH (08:15)
[2017-01-28] MEDS: PANTOPRAZOLE 40 MG TABLET PO SCH (08:16)
[2017-01-28] MEDS: ATENOLOL 25 MG TABLET PO SCH ×2 (08:16→21:09)
[2017-01-28] MEDS: CILOSTAZOL 50 MG TABLET PO SCH ×2 (08:16→20:56)
[2017-01-28] MEDS ORDERED: LEVOFLOXACIN INJ 750 MG in PREMIX 1 EACH IV SCH (10:30)
[2017-01-28] MEDS: ACETAMINOPHEN 325 MG TABLET PO PRN ×2 (10:51→21:04)
--- NOTE | 2017-01-28 13:54 | Hospitalist Progress Note ---
Hospitalist: Subjective Interval history: No BM since admission. Ankle pain controlled. Tolerating po. No fever. No cp or SOB. Exam - Constitutional Vitals: Period Temp Pulse Resp BP Sys/Brooke Pulse Ox Last 24 Hr 97.9 F-98.8 F 76-86 16-20 86-131/53-78 92-98 Exam: A and O x 2, sitting in a chair, NAD, hearing impairment RRR distant heart tones no obvious M,R,G CTAB nonlabored Soft, NT, ND, +BS Warm no c/c/ right leg elevated with bandage/ brace in place Results - Labs CBC & BMP: 01/28/17 06:00 01/28/17 06:00 - Impressions (1) Trimalleolar fracture of right ankle s/p repair Status: Acute Assessment and plan: Orthopedics following. Current Visit: Yes Qualifiers: Encounter type: subsequent encounter Fracture type: closed Qualified Code (s): S82.851A - Displaced trimalleolar fracture of right lower leg, subsequent encounter for closed fracture (2) UTI (urinary tract infection)/ cystitis due to E Coli (pansensitive) Status: Acute Assessment and plan: Cont Levaquin but change to po Current Visit: Yes (3) Visual impairment Status: Acute Assessment and plan: Assistance with ADLs as needed. Cont OT/ PT following fracture of the right lower extremity. Fall precautions should be observed. Current Visit: Yes (4) Essential hypertension Status: Acute Assessment and plan: Blood pressure control is good at this point. Cont current mgt. 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 Agree with dc metformin due to CKD Current Visit: Yes (6) PAD - Cont current therapy (7) Dementia - Cont current therapy (8) CKD stage 3 likely due to DM and HTN - monitor. Dispo: Likely to rehab in am D/W nurse, case assistant, pt and daughter and all questions answered. Quality Measures - VTE Contraindication to Pharmacological VTE Prophylaxis: High Risk of Bleeding Specialty Discharge - Follow Up or Referrals Follow up with: Billy Prieto Jr., MD [Physician] - 02/06/17 9:30 am
[2017-01-28] MEDS ORDERED: BISACODYL 10 MG SUPP RECTAL PRN (17:03)
[2017-01-28] MEDS ORDERED: BISACODYL 10 MG SUPP RECTAL ONE (17:03)
[2017-01-28] MEDS: LOVASTATIN 20 MG TABLET PO SCH (17:20)
[2017-01-28] MEDS ORDERED: INSULIN NPH/REGULAR 70/30 100 UNIT/ML SUBCUT SCH (19:00)
[2017-01-28 19:10] LABS: Free T4 (Free Thyroxine) 1.33 NG/DL (0.76-1.46); Thyroid Stimulating Hormone 7.99 uIU/ml (0.358-3.74)
[2017-01-28] MEDS: AMITRIPTYLINE 50 MG TABLET PO SCH (20:56)
[2017-01-28] MEDS: MAGNESIUM HYDROXIDE SUSP 30 ML UDCUP PO PRN (21:05)
--- NOTE | 2017-01-29 07:20 | Orthopedic Progress Note ---
Assessment and Plan (1) Trimalleolar fracture of right ankle Status: Acute Current Visit: Yes Qualifiers: Encounter type: initial encounter Fracture type: closed Qualified Code(s) : S82.851A - Displaced trimalleolar fracture of right lower leg, initial encounter for closed fracture Orthopedics - Subjective Interval history: Ms. Parker is making slow progress. She was able to sit in a chair for about 45 minutes yesterday. Exam right lower extremity is unchanged. Plan: Continue current recommendations. May be discharged to swing bed when available from my standpoint. Exam - Constitutional Vitals: Period Temp Pulse Resp BP Sys/Brooke Pulse Ox Last 24 Hr 96.8 F-98.0 F 76-87 18-20 100-131/36-78 90-95 Results - Labs CBC & BMP: 01/28/17 06:00 01/28/17 06:00 Quality Measures - VTE Contraindication to Pharmacological VTE Prophylaxis: High Risk of Bleeding Specialty Discharge - Follow Up or Referrals Follow up with: Billy Prieto Jr., MD [Physician] - 02/06/17 9:30 am
[2017-01-29] MEDS: LOSARTAN 50 MG TABLET PO SCH (08:24)
[2017-01-29] MEDS: ATENOLOL 25 MG TABLET PO SCH (08:24)
[2017-01-29] MEDS: TRIAMTERENE/HCTZ 37.5-25 MG CAPSULE PO SCH (08:24)
[2017-01-29] MEDS: PANTOPRAZOLE 40 MG TABLET PO SCH (08:33)
[2017-01-29] MEDS: MEMANTINE 5 MG TABLET PO SCH (08:33)
[2017-01-29] MEDS: CILOSTAZOL 50 MG TABLET PO SCH (08:33)
[2017-01-29] MEDS: GABAPENTIN 100 MG CAPSULE PO SCH (08:33)
[2017-01-29] MEDS: INSULIN LISPRO 100 UNIT/ML SUBCUT SCH ×2 (08:34→11:48)
[2017-01-29] MEDS: FONDAPARINUX 2.5 MG/0.5 ML SYRINGE SUBCUT SCH (08:34)
[2017-01-29] MEDS ORDERED: LEVOFLOXACIN 500 MG TABLET PO SCH (09:00)
[2017-01-29] MEDS ORDERED: INSULIN NPH/REGULAR 70/30 100 UNIT/ML SUBCUT SCH (09:00)
--- NOTE | 2017-01-29 09:28 | Hospitalist Progress Note ---
Hospitalist: Subjective Interval history: No new complaints. No significant overnight events. No BM yet after suppository. She has not responded to milk of magnesia. Daughter states that this is a chronic problem for her. She is tolerating oral intake well. No abdominal pain. No fever. Pain is controlled. Exam - Constitutional Vitals: Period Temp Pulse Resp BP Sys/Brooke Pulse Ox Last 24 Hr 96.8 F-98.0 F 76-87 18-20 100-131/36-78 90-95 Exam: A and O x 2, sitting on hospital bed eating breakfast, NAD, hearing impairment RRR distant heart tones no obvious M,R,G CTAB nonlabored Soft, NT, ND, +BS Warm no c/c/ right leg elevated with bandage/ brace in place Results - Labs CBC & BMP: 01/28/17 06:00 01/28/17 06:00 - Impressions (1) Trimalleolar fracture of right ankle s/p repair Status: Acute Assessment and plan: Orthopedics following. Current Visit: Yes Qualifiers: Encounter type: subsequent encounter Fracture type: closed Qualified Code (s): S82.851A - Displaced trimalleolar fracture of right lower leg, subsequent encounter for closed fracture (2) UTI (urinary tract infection)/ cystitis due to E Coli (pansensitive) Status: Acute Assessment and plan: Cont Levaquin but change to po Current Visit: Yes (3) Visual impairment Status: Acute Assessment and plan: Assistance with ADLs as needed. Cont OT/ PT following fracture of the right lower extremity. Fall precautions should be observed. Current Visit: Yes (4) Essential hypertension Status: Acute Assessment and plan: Blood pressure control is good at this point. Cont current mgt. 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 Agree with dc metformin due to CKD Current Visit: Yes (6) PAD - Cont current therapy (7) Dementia - Cont current therapy (8) CKD stage 3 likely due to DM and HTN - monitor. (9) constipation -discussed with nurse regarding giving soap suds enema. With abnormal TSH, needs to be repeated in 4-6 weeks with Total T3 and Free T4 once acute illness has passed. May need to initiate synthroid. Will defer to patient's PCP. Dispo: DC to rehab once bowel movement complete D/W nurse, telephonic case manager, pt and daughter and all questions answered. Quality Measures - VTE Contraindication to Pharmacological VTE Prophylaxis: High Risk of Bleeding Specialty Discharge - Follow Up or Referrals Follow up with: Billy Prieto Jr., MD [Physician] - 02/06/17 9:30 am
[2017-01-29 11:25] VITALS: BP 120/52
--- NOTE | 2017-01-29 12:46 | Discharge Summary ---
<Christal Drake - Last Filed: 01/29/17 12:41> Hospital Course - Hospital Course Hospital Course: Ms. Parker is a 81 year old female with a pmh of hypertension, dementia, hyperlipidemia, and diabetes mellitus that presented to the ED at [facility] on 01/24 with a chief compliant of right ankle pain. The patient reports that she got up around 0100 to use the restroom when she tripped and fell on the floor. The patient was not able to get up. She remained there on the floor until her daughter, who lives next door came over about 9AM this morning and found her. Her daughter called EMS and she was transferred to the ED for further evaluation. Pt. had a right trimalleolar ankle fracture and was admitted for further evaluation. Surgery was consulted to see patient. Surgery suggested open reduction fixation. Pt. tolerated the procedure well. She began therapy with PT/OT and was started on DVT prophylaxis. Pt. was also found to have a UTI which was treated with Levaquin. Pt. has improved during her stay and is ready to discharged to the swingbed facility. Pt. will need to follow up with family PCP to evaluate abnormal TSH levels. MD to follow. Specialty Discharge - Follow Up or Referrals Follow up with: Billy Prieto Jr., MD [Physician] - 02/06/17 9:30 am Discharge Plan - Discharge Data Disposition: Disch/Xfer-Ip Rehab Fac - Discharge Medications New Acetaminophen Tab [Tylenol Tab] 650 mg PO Q6H PRN #0 tablet PRN Reason: Pain Mild (1-3) Fondaparinux [Arixtra] 2.5 mg SUBCUT Q24H 14 Days Glucagon 1 mg IM PRN PRN #0 vial PRN Reason: Hypoglycemia w/o IV access Insulin NPH/Regular 70/30 [HumuLIN 70/30] 15 unit SUBCUT QPM unit Insulin NPH/Regular 70/30 [HumuLIN 70/30] 15 unit SUBCUT QAM unit Levofloxacin Tab [Levaquin Tab] 500 mg PO DAILY #6 tablet Bisacodyl Supp [Dulcolax Supp] 10 mg RECTAL DAILY PRN #0 supp PRN Reason: Constipation Insulin Lispro [HumaLOG] See Protocol SUBCUT ACHS unit Magnesium Hydroxide Susp [Milk of Magnesia] 30 ml PO Q6H PRN #0 PRN Reason: Constipation Continue Pantoprazole Tab [Protonix Tab] 40 mg PO QAM Memantine [Namenda] 5 mg PO BID Gabapentin 100 mg PO BID Cilostazol 50 mg PO BID Atenolol 25 mg PO BID Amitriptyline [Elavil] 50 mg PO BEDTIME Triamterene/Hydrochlorothiazid [Triamterene-Hctz 37.5-25 mg Cp] 1 each PO QAM Losartan Potassium 100 mg PO QAM Lovastatin 40 mg PO DAILY W/SUPPER Discontinued Insulin NPH Hum/Reg Insulin Hm [NovoLIN 70/30] 40 units SUBCUT QPM metFORMIN [Glucophage] 500 mg PO DAILY W/BREAKFAST Insulin NPH Hum/Reg Insulin Hm [NovoLIN 70/30] 64 units SUBCUT QAM - Follow Up or Referral Follow Up: Billy Prieto Jr., MD [Physician] - 02/06/17 9:30 am - Forms/Instructions Instructions: Urinary Tract Infection in Women (DC), Open Reduction and Internal Fixation of an Ankle Fracture (DC) Exam - Constitutional Vitals: Period Temp Pulse Resp BP Sys/Brooke Pulse Ox Last 24 Hr 96.8 F-98.0 F 76-87 -18 100-123/36-62 90-95 Discharge Results Labs on day of discharge: Labs from last 24 hours 01/29/17 01/29/17 01/28/17 11:25 07:28 20:20 POC Glucose 300 H 249 H 255 H Free T4 TSH 3rd Generation 01/28/17 01/28/17 15:55 06:00 POC Glucose 242 H Free T4 1.33 TSH 3rd Generation 7.990 H DS: Provider Date of admission: 01/24/17 11:11 Primary care physician: . No PCP Attending physician on admission: Dewayne Mckenzie MD Consults: 01/24/17 11:14 Consult to Physician [CONS] Routine Comment: Consulting Provider: Billy Prieto Jr. Consulting Provider Notified: Yes When should Consulting Provider be notified: Now Person Notified: riki dee called Date Notified: 01/24/17 Time Notified: 12:48 01/24/17 11:58 Consult to Pharmacy [CONS] Routine Reason for Pharmacy Consult: Adjust Meds Renal Funct 01/24/17 16:25 Consult to Physical Therapy [CONS] Routine Reason for Physical Therapy: Evaluate and Treat Start Therapy: Tomorrow Consult Comment: ricardo sheehan 01/25/17 07:13 Consult to Case Mgmt/Social Srvs [CONS] Routine Reason for Case Mgmt/Social Srvs: Swingbed/SNF/Group Home Consult to Occupational Therapy [CONS] Routine Reason for Occupational Therapy: Evaluate and Treat Weakness Discharging clinician: Christal Drake NP <Kadie Hickey - Last Filed: 01/29/17 12:59> Hospital Course - Hospital Course Hospital Course: Agree with above. For physical exam see progress note from earlier today. Discharge Plan - Discharge Data Condition at Discharge: Stable Discharge Diet: advance to your usual diet Activity: other (as per ortho recs) Contact your physician if you experience:: fever over 101, Difficulty voiding, Redness or swelling, Nausea/Vomiting, Shortness of breath, Bleeding, pain uncontrolled by pain medications
== END 2017-01-29 14:33 | disposition swing bed (61) | DRG 493 ==
LOC: EDUNIT# → EDBD → N.ED 10:15 → SUATTDRO 11:11 → N.EDINP 11:11 → N.3E 11:56
PROVIDERS: ADMIT Internal Medicine Infectious Disease; ATTEND Pediatrics

== ENCOUNTER 2019-08-21 10:06 | Inpatient (IN) ==
[2019-08-21] MEDS ORDERED: SODIUM CHLORIDE 0.9% 1,000 ML IV STA ×2 (10:59→12:53)
[2019-08-21 11:15] LABS: Basophils % 0.1 % (0.0-0.8); Hematocrit 44.4 VOL% (35.7-47.0); Hemoglobin 14.8 GM/DL (12.0-16.0); Immature Granulocytes % 0.3 %; Immature Granulocytes Absolute 0.02 #; Lymphocytes # 0.2 10*3/uL (1.4-4.0); Lymphocytes % 2.3 % (21.3-54.2); Mean Corpuscular HGB Conc 33.3 GM/DL (32-36); Mean Corpuscular Volume 94.1 FL (87-102); Mean Platelet Volume 10.2 FL (9.6-12.0); Monocytes % 7.1 % (1.7-12.7); Neutrophils % 90.2 % (38.7-73.9); Platelet Count 138 T/CUMM (130-400); Red Blood Count 4.72 MC/CUMM (3.8-5.5); Red Cell Distribution Width 13.2 % (9.3-17.3); White Blood Count 6.9 T/CUMM (4-12)
[2019-08-21 11:27] LABS: Apearance,Urine Slightly Hazy (Clear); Bacteria,Urine Few /HPF (Few); Bilirubin,Urine Negative (Negative); Blood, Urine Negative (Negative); Glucose,Urine (UA) 50 mg/dL (Negative); Ketones,Urine Negative (Negative); Mucus,Urine Occasional /LPF (Occasional); Nitrite,Urine Negative (Negative); Protein,Urine Negative; Urine Color Yellow (Yellow); Urine Specific Gravity 1.012 (1.001-1.035); WBC,Urine 9 /HPF (0-6)
[2019-08-21 11:42] LABS: Albumin 3.4 G/DL (3.4-5.0); Bilirubin,Total 2.4 MG/DL (0.2-1.0); Calcium 8.8 MG/DL (8.5-10.1); Osmolality,Calculated 279.2 MOS/KG (273-304); Thyroid Stimulating Hormone 3.56 uIU/ml (0.358-3.74); Total Protein 6.6 G/DL (6.4-8.3)
[2019-08-21 11:52] LABS: Band Neutrophils 5 % (0-10); Eosinophils 1 % (0-10); Lymphocytes 5 % (20-55); Segmented Neutrophils 85 % (50-85); Total Cells Counted 100
[2019-08-21 11:53] LABS: Hypochromasia 1+; Platelet Estimate Adequate
[2019-08-21] MEDS ORDERED: cefTRIAXone 1,000 MG in SODIUM CHLORIDE 0.9% 100 ML IV STA (11:55)
[2019-08-21] MEDS ORDERED: ACETAMINOPHEN 325 MG TABLET PO PRN (12:45)
[2019-08-21] MEDS ORDERED: GLUCAGON 1 MG VIAL IM PRN (12:45)
[2019-08-21] MEDS ORDERED: ONDANSETRON 4 MG/2 ML VIAL IV PRN (12:45)
[2019-08-21] MEDS ORDERED: DEXTROSE 50% 25 GM/50 ML VIAL IV PRN (12:45)
[2019-08-21 13:36] LABS: Troponin I 0.041 NG/ML (0.00-0.045)
[2019-08-21 13:49] LABS: Bilirubin,Direct 1.4 MG/DL (0.0-0.20); Bilirubin,Indirect 0.8 MG/DL (0.0-1.0); Bilirubin,Total 2.2 MG/DL (0.2-1.0); Total Protein 5.8 G/DL (6.4-8.3)
[2019-08-21] MEDS: INSULIN LISPRO 100 UNIT/ML SUBCUT SCH ×2 (16:21→20:52)
[2019-08-21] MEDS: SODIUM CHLORIDE 0.9% 1,000 ML IV SCH (16:22)
[2019-08-21 17:13] LABS: Troponin I 0.056 NG/ML (0.00-0.045)
[2019-08-21 19:59] LABS: Troponin I 0.061 NG/ML (0.00-0.045)
[2019-08-21] MEDS: MEMANTINE 5 MG TABLET PO SCH (20:51)
[2019-08-21] MEDS: INSULIN GLARGINE 100 UNIT/ML SUBCUT SCH (20:51)
[2019-08-22 05:51] LABS: INR 1.2
[2019-08-22 06:01] LABS: Albumin 2.6 G/DL (3.4-5.0); Bilirubin,Total 2.2 MG/DL (0.2-1.0); Calcium 8.1 MG/DL (8.5-10.1); Osmolality,Calculated 279.4 MOS/KG (273-304); Risk Ratio 3.05; Total Protein 5.3 G/DL (6.4-8.3); VLDL CHOLESTEROL 19.2 MG/DL
[2019-08-22 06:21] LABS: Basophils % 0.2 % (0.0-0.8); Eosinophils % 0.5 % (0.00-10.9); Hematocrit 35.2 VOL% (35.7-47.0); Immature Granulocytes % 0.5 %; Immature Granulocytes Absolute 0.03 #; Lymphocytes # 0.5 10*3/uL (1.4-4.0); Mean Corpuscular HGB Conc 33.8 GM/DL (32-36); Mean Corpuscular Volume 94.6 FL (87-102); Mean Platelet Volume 10.4 FL (9.6-12.0); Monocytes % 9.5 % (1.7-12.7); Neutrophils % 81.3 % (38.7-73.9); Platelet Count 127 T/CUMM (130-400); Red Cell Distribution Width 13.5 % (9.3-17.3); White Blood Count 6.4 T/CUMM (4-12)
[2019-08-22 06:24] LABS: Hemoglobin 11.9 GM/DL (12.0-16.0); Red Blood Count 3.72 MC/CUMM (3.8-5.5)
[2019-08-22 06:48] LABS: Hepatitis B Core IgM Quant 0.07 Index; Hepatitis B Surface Ag Quant < 0.10 Index; Hepatitis B Surface Ag Result Negative (Negative); Hepatitis C Virus Ab Quant 0.15 Index; Hepatitis C Virus Ab Result Negative (Negative)
[2019-08-22] MEDS ORDERED: MAGNESIUM SULF RIDER 4 GM in PREMIX 1 EACH IV PRN (07:22)
[2019-08-22] MEDS ORDERED: MAGNESIUM SULF RIDER 2 GM in PREMIX 1 EACH IV PRN (07:22)
[2019-08-22] MEDS: INSULIN LISPRO 100 UNIT/ML SUBCUT SCH ×4 (09:31→21:06)
[2019-08-22] MEDS: MEMANTINE 5 MG TABLET PO SCH ×2 (09:38→21:06)
[2019-08-22] MEDS: cefTRIAXone 1,000 MG in SYRINGE 1 EACH IV SCH (09:38)
[2019-08-22] MEDS: SODIUM CHLORIDE 0.9% 1,000 ML IV SCH (12:39)
[2019-08-22] MEDS: INSULIN GLARGINE 100 UNIT/ML SUBCUT SCH (21:05)
[2019-08-23 08:08] LABS: Basophils % 0.2 % (0.0-0.8); Eosinophils # 0.1 10*3/uL (0.0-0.87); Eosinophils % 1.6 % (0.00-10.9); Hematocrit 38.4 VOL% (35.7-47.0); Hemoglobin 12.9 GM/DL (12.0-16.0); Immature Granulocytes % 0.6 %; Immature Granulocytes Absolute 0.03 #; Lymphocytes # 0.6 10*3/uL (1.4-4.0); Lymphocytes % 12.4 % (21.3-54.2); Mean Corpuscular HGB Conc 33.6 GM/DL (32-36); Mean Corpuscular Volume 93.2 FL (87-102); Mean Platelet Volume 10.1 FL (9.6-12.0); Monocytes % 11.4 % (1.7-12.7); Neutrophils % 73.8 % (38.7-73.9); Platelet Count 124 T/CUMM (130-400); Red Blood Count 4.12 MC/CUMM (3.8-5.5); Red Cell Distribution Width 13.2 % (9.3-17.3); White Blood Count 4.9 T/CUMM (4-12)
[2019-08-23] MEDS: SODIUM CHLORIDE 0.9% 1,000 ML IV SCH (08:32)
[2019-08-23] MEDS: MEMANTINE 5 MG TABLET PO SCH (08:32)
[2019-08-23] MEDS: cefTRIAXone 1,000 MG in SYRINGE 1 EACH IV SCH (08:32)
[2019-08-23 08:39] LABS: Albumin 2.7 G/DL (3.4-5.0); Bilirubin,Total 1.3 MG/DL (0.2-1.0); Calcium 8.3 MG/DL (8.5-10.1); Osmolality,Calculated 273.1 MOS/KG (273-304); Total Protein 6.2 G/DL (6.4-8.3)
[2019-08-23] MEDS: INSULIN LISPRO 100 UNIT/ML SUBCUT SCH ×2 (08:50→12:22)
[2019-08-23 12:33] VITALS: BP 146/72
== END 2019-08-23 13:17 | disposition home health service (06) | DRG 441 ==
LOC: N.ED 10:06 → SUATTDRO 12:44 → N.EDINP 12:44 → N.5E 13:48
PROVIDERS: ADMIT Hospitalist; ATTEND Internal Medicine Nephrology

== ENCOUNTER 2019-11-19 16:12 | Inpatient (IN) ==
[2019-11-19 18:06] LABS: Apearance,Urine CLOUDY (Clear); Bacteria,Urine Moderate /HPF (Few); Bilirubin,Urine Negative (Negative); Blood, Urine Negative (Negative); Glucose,Urine (UA) Negative (Negative); Hyaline Casts,Urine 20 /LPF (0-3); Ketones,Urine Negative (Negative); Mucus,Urine Occasional /LPF (Occasional); Nitrite,Urine Negative (Negative); Protein,Urine Negative; RBC,Urine 22 /HPF (0-4); Urine Color Dark Yellow (Yellow); Urine Specific Gravity 1.013 (1.001-1.035); WBC,Urine 1243 /HPF (0-6)
[2019-11-19 18:47] LABS: Basophils % 0.2 % (0.0-0.8); Eosinophils # 0.1 10*3/uL (0.0-0.87); Eosinophils % 1.2 % (0.00-10.9); Hematocrit 41.6 VOL% (35.7-47.0); Hemoglobin 13.5 GM/DL (12.0-16.0); Immature Granulocytes % 0.5 %; Immature Granulocytes Absolute 0.03 #; Lymphocytes % 14.7 % (21.3-54.2); Mean Corpuscular HGB Conc 32.5 GM/DL (32-36); Mean Corpuscular Volume 96.1 FL (87-102); Mean Platelet Volume 9.5 FL (9.6-12.0); Monocytes % 13.7 % (1.7-12.7); Neutrophils % 69.7 % (38.7-73.9); Platelet Count 168 T/CUMM (130-400); Red Blood Count 4.33 MC/CUMM (3.8-5.5); Red Cell Distribution Width 13.8 % (9.3-17.3); White Blood Count 6.7 T/CUMM (4-12)
[2019-11-19] MEDS ORDERED: cefTRIAXone 1,000 MG in SODIUM CHLORIDE 0.9% 100 ML IV STA (18:53)
[2019-11-19 19:14] LABS: Albumin 3.2 G/DL (3.4-5.0); Bilirubin,Total 0.8 MG/DL (0.2-1.0); Calcium 8.8 MG/DL (8.5-10.1); Osmolality,Calculated 269.5 MOS/KG (273-304); Total Protein 6.6 G/DL (6.4-8.3)
[2019-11-19] MEDS ORDERED: DEXTROSE 50% 25 GM/50 ML VIAL IV PRN (22:59)
[2019-11-19] MEDS ORDERED: ONDANSETRON 4 MG/2 ML VIAL IV PRN (22:59)
[2019-11-19] MEDS ORDERED: ACETAMINOPHEN 325 MG TABLET PO PRN (22:59)
[2019-11-19] MEDS ORDERED: DOCUSATE SODIUM 100 MG CAPSULE PO PRN (22:59)
[2019-11-19] MEDS ORDERED: GLUCAGON 1 MG VIAL IM PRN (22:59)
[2019-11-19] MEDS: ENOXAPARIN 40 MG/0.4 ML SYRINGE SUBCUT SCH (23:40)
[2019-11-19] MEDS: cilostazoL 50 MG TABLET PO SCH (23:41)
[2019-11-19] MEDS: AMITRIPTYLINE 50 MG TABLET PO SCH (23:41)
[2019-11-19] MEDS: MEMANTINE 5 MG TABLET PO SCH (23:41)
[2019-11-19] MEDS: GABAPENTIN 100 MG CAPSULE PO SCH (23:41)
[2019-11-19] MEDS: ASPIRIN EC 81 MG TABLET PO SCH (23:41)
[2019-11-19] MEDS: INSULIN LISPRO 100 UNIT/ML SUBCUT SCH (23:42)
[2019-11-19] MEDS: SODIUM CHLORIDE 0.9% 1,000 ML IV SCH (23:46)
[2019-11-19] MEDS: INSULIN NPH/REGULAR 70/30 100 UNIT/ML SUBCUT SCH (23:51)
[2019-11-20 05:25] LABS: Basophils % 0.2 % (0.0-0.8); Eosinophils # 0.2 10*3/uL (0.0-0.87); Eosinophils % 3.5 % (0.00-10.9); Hematocrit 37.7 VOL% (35.7-47.0); Hemoglobin 12.6 GM/DL (12.0-16.0); Immature Granulocytes % 0.4 %; Immature Granulocytes Absolute 0.02 #; Lymphocytes # 0.7 10*3/uL (1.4-4.0); Lymphocytes % 15.7 % (21.3-54.2); Mean Corpuscular HGB Conc 33.4 GM/DL (32-36); Mean Corpuscular Volume 94.5 FL (87-102); Monocytes % 10.9 % (1.7-12.7); Neutrophils % 69.3 % (38.7-73.9); Platelet Count 157 T/CUMM (130-400); Red Blood Count 3.99 MC/CUMM (3.8-5.5); Red Cell Distribution Width 14.2 % (9.3-17.3); White Blood Count 4.5 T/CUMM (4-12)
[2019-11-20 05:51] LABS: Calcium 8.5 MG/DL (8.5-10.1)
[2019-11-20] MEDS: INSULIN LISPRO 100 UNIT/ML SUBCUT SCH ×4 (08:12→20:44)
[2019-11-20] MEDS: cilostazoL 50 MG TABLET PO SCH ×2 (09:22→20:44)
[2019-11-20] MEDS: MEMANTINE 5 MG TABLET PO SCH ×2 (09:22→20:44)
[2019-11-20] MEDS: INSULIN NPH/REGULAR 70/30 100 UNIT/ML SUBCUT SCH ×2 (09:22→21:05)
[2019-11-20] MEDS: GABAPENTIN 100 MG CAPSULE PO SCH ×2 (09:22→20:44)
[2019-11-20] MEDS: SODIUM CHLORIDE 0.9% 1,000 ML IV SCH (14:28)
[2019-11-20] MEDS ORDERED: cefTRIAXone 1,000 MG in SYRINGE 1 EACH IV SCH (18:00)
[2019-11-20] MEDS: AMITRIPTYLINE 50 MG TABLET PO SCH (20:44)
[2019-11-20] MEDS: ASPIRIN EC 81 MG TABLET PO SCH (20:44)
[2019-11-20] MEDS: ENOXAPARIN 40 MG/0.4 ML SYRINGE SUBCUT SCH (23:26)
[2019-11-21] MEDS: SODIUM CHLORIDE 0.9% 1,000 ML IV SCH (05:38)
[2019-11-21] MEDS: INSULIN NPH/REGULAR 70/30 100 UNIT/ML SUBCUT SCH (08:14)
[2019-11-21] MEDS: INSULIN LISPRO 100 UNIT/ML SUBCUT SCH (08:14)
[2019-11-21] MEDS: GABAPENTIN 100 MG CAPSULE PO SCH (09:02)
[2019-11-21] MEDS: cilostazoL 50 MG TABLET PO SCH (09:02)
[2019-11-21] MEDS: MEMANTINE 5 MG TABLET PO SCH (09:02)
[2019-11-21 09:28] VITALS: BP 165/84
== END 2019-11-21 11:43 | disposition home or self-care (01) | DRG 690 ==
LOC: N.ED 16:12 → N.EDINP 19:42
PROVIDERS: ADMIT Internal Medicine; ATTEND Internal Medicine